=== PATIENT | male | born 1990 | race African-American/Black ===

== ENCOUNTER 2018-04-10 08:30 | Emergency (ER) | payer SELFPAY ==
[2018-04-10] MEDS ORDERED: NS 0.9% 1000 ML* 1,000 ML IV ONE (08:48)
[2018-04-10 09:21] LABS: ABS Basophils 0.1 10^3/ul (0-0.2); ABS Eosinophils 0.1 10^3/ul (0-0.6); ABS Lymphocytes 0.6 10^3/ul (1.0-4.8); ABS Monocytes 0.4 10^3/ul (0-0.8); ABS Neutrophils 2.5 10^3/ul (1.5-7.7); ABS Nucleated RBC 0 10^3/ul; Eosinophil % 3.3 % (0-6); Hematocrit 42 % (42-52); Hemoglobin 14.1 g/dl (14.0-18.0); Lymphocyte % 17.7 % (25-47); Mean Corpuscular HGB Conc 34 g/dl (31-36); Mean Corpuscular Hemoglobin 29 pg (27-31); Mean Corpuscular Volume 87 fL (80-94); Mean Platelet Volume 7.3 um3 (7.4-10.4); Nucleated Red Blood Cells % 0.1; Platelet Count 232 10^3/ul (150-450); Red Cell Distribution Width 13 % (10.5-15); White Blood Count 3.7 10^3/ul (3.5-10.8)
[2018-04-10 09:29] LABS: INR 0.86 (0.77-1.02)
--- NOTE | 2018-04-10 09:38 | RAD ---
INDICATION: Seizure, fall. COMPARISON: There are no prior studies available for comparison. TECHNIQUE: Contiguous axial sections of the brain were obtained from the skull base to the vertex without contrast. FINDINGS: The ventricles, cisterns and sulci are within normal limits. No significant focal abnormality or mass effect is seen. There is no evidence for hemorrhage. There is mild mucosal thickening in the visualized portion of the right maxillary sinus. The paranasal sinuses and mastoid air cells otherwise appear clear. No fracture is seen. IMPRESSION: NO EVIDENCE FOR ACUTE INTRACRANIAL ABNORMALITY.
--- NOTE | 2018-04-10 09:49 | RAD ---
INDICATION: Facial trauma. COMPARISON: There are no prior studies available for comparison. TECHNIQUE: Contiguous axial sections of the axial images of the facial bones were obtained and reconstructed in the coronal and sagittal planes. FINDINGS: Soft tissue swelling is noted anterior to the mandible and swelling of around both the upper and lower lips. There is air in the soft tissues deep to the upper lip. The anterior nasal spine of the maxilla appears intact. The rader of the orbits and maxillary sinuses appear intact. The zygomatic arches appear intact. There is no evidence for a fracture of the mandible. The nasal bones appear intact. There is mild deviation of the nasal septum toward the right side. The pterygoid plates appear intact. There appears to be a chip in the inferior aspect of the left central incisor tooth. There is also slight displacement of the left central and lateral incisor teeth anterior relative to the adjacent bony alveolar ridge. There is mild mucosal thickening along the medial and superior rader of both maxillary sinuses. There is also mild mucosal thickening within the ethmoid air cells. The sphenoid and frontal sinuses appear clear. IMPRESSION: 1. SOFT TISSUE SWELLING AND AIR WITHIN THE SOFT TISSUES ADJACENT TO THE UPPER LIP. 2. CHIP OF THE LEFT CENTRAL INCISOR TOOTH AND SLIGHT ANTERIOR DISPLACEMENT OF BOTH THE LEFT CENTRAL AND LATERAL INCISOR TEETH.
[2018-04-10 11:11] LABS: Urine Appearance Clear; Urine Blood Negative (Negative); Urine Color Yellow; Urine Ketones Negative (Negative); Urine Protein 1+(30 mg/dL) (Negative); Urine Specific Gravity 1.021 (1.010-1.030); Urine Urobilinogen Negative (Negative)
[2018-04-10] MEDS ORDERED: Ibuprofen TAB* 600 MG PO ONE (12:22)
[2018-04-10 12:34] VITALS: BP 111/60
--- NOTE | 2018-04-10 12:40 | ED ---
Lorraine Salcedo Rebecca, scribed for Carroll Altman MD on 04/10/18 at 0849 . Neurological HPI - HPI Summary HPI Summary: Pt is a 27 y/o M BIBA with a PMHx of epilepsy who presents to ED s/p seizure. Pt reports that he had a seizure this morning during which he was "out pretty long." States that he bit his tongue, presents with left-sided lip swelling. Also notes chipped teeth, which may have been broken for a while. On triage, associated pain is ranked 7/10. Pt was previously on Dilantin which was not improving his sx. Has not had a seizure in about 2 years, though had one 1-2 weeks ago, in addition to the episode today. Suspects that he is having episodes more often now secondary to decreased sleep. Doesn't have a neurologist and last had a CT in [id number]. - History of Current Complaint Chief Complaint: EDSeizure Stated Complaint: POSS SEIZURE,FACIAL INJURY Time Seen by Provider: 04/10/18 08:39 Hx Obtained From: Patient Onset/Duration: Resolved Timing: Intermittent Episodes Lasting: - "pretty long" Current Severity: Moderate - Lip pain Number of Seizures: 1 Pain Intensity: 7 Pain Scale Used: 0-10 Numeric Aggravating: Sleep Deprivation Alleviating: Spontanious Resolution Related Hx: Seizure - Allergy/Home Medications Allergies/Adverse Reactions: Allergies Allergy/AdvReac Type Severity Reaction Status Date / Time No Known Allergies Allergy Verified 04/10/18 08:38 PMH/Surg Hx/FS Hx/Imm Hx Endocrine/Hematology History: Denies: Hx Diabetes Cardiovascular History: Denies: Hx Coronary Artery Disease, Hx Hypertension Neurological History: Reports: Hx Seizures Infectious Disease History: No Infectious Disease History: Denies: Traveled Outside the [place] in Last 30 Days - Family History Known Family History: Positive: Hypertension - Social History Alcohol Use: Occasionally Substance Use Type: Reports: None Smoking Status (MU): Never Smoked Tobacco Review of Systems Negative: Fever Positive: Other - Bit tongue, chipped teeth, swollen lip Neurological: Other - S/p seizure All Other Systems Reviewed And Are Negative: Yes Physical Exam - Summary Physical Exam Summary: General: well-appearing, no pain distress Skin: warm, color reflects adequate perfusion, dry Head: The left upper and lower lips are swollen Eyes: EOMI, ALO ENT: Has a tongue laceration that is not actively bleeding, has a laceration on the inside of his mouth that is not actively bleeding, broken teeth Neck: supple, nontender Respiratory: CTA, breath sounds present Cardiovascular: RRR Abdomen: soft, nontender Bowel: present Musculoskeletal: normal, strength/ROM intact Neurological: sensory/motor intact, A&O x3 Psychological: affect/mood appropriate Triage Information Reviewed: Yes Vital Signs On Initial Exam: Initial Vitals Temp Pulse Resp BP Pulse Ox 98.7 F 87 22 148/87 97 04/10/18 08:33 04/10/18 08:33 04/10/18 08:33 04/10/18 08:33 04/10/18 08:33 Vital Signs Reviewed: Yes - Kayla Coma Scale Best Eye Response: 4 - Spontaneous Best Motor Response: 6 - Obeys Commands Best Verbal Response: 5 - Oriented Coma Scale Total: 15 Diagnostics - Vital Signs Vital Signs Temp Pulse Resp BP Pulse Ox 04/10/18 08:36 85 14 98 04/10/18 08:33 98.7 F 87 22 148/87 97 - Laboratory Lab Results: Lab Results 04/10/18 04/10/18 04/10/18 Range/Units 09:03 09:03 09:03 WBC 3.7 (3.5-10.8) 10^3/ul RBC 4.80 (4.00-5.40) 10^6/ul Hgb 14.1 (14.0-18.0) g/dl Hct 42 (42-52) % MCV 87 (80-94) fL MCH 29 (27-31) pg MCHC 34 (31-36) g/dl RDW 13 (10.5-15) % Plt Count 232 (150-450) 10^3/ul MPV 7.3 L (7.4-10.4) um3 Neut % (Auto) 67.1 (38-83) % Lymph % (Auto) 17.7 L (25-47) % [place] % (Auto) 10.4 H (0-7) % Eos % (Auto) 3.3 (0-6) % Baso % (Auto) 1.5 (0-2) % Absolute Neuts (auto) 2.5 (1.5-7.7) 10^3/ul Absolute Lymphs (auto) 0.6 L (1.0-4.8) 10^3/ul Absolute Monos (auto) 0.4 (0-0.8) 10^3/ul Absolute Eos (auto) 0.1 (0-0.6) 10^3/ul Absolute Basos (auto) 0.1 (0-0.2) 10^3/ul Absolute Nucleated RBC 0 10^3/ul Nucleated RBC % 0.1 INR (Anticoag Therapy) 0.86 (0.77-1.02) APTT 28.0 (26.0-36.3) seconds Sodium 137 (135-145) mmol/L Potassium 4.1 (3.5-5.0) mmol/L Chloride 107 (101-111) mmol/L Carbon Dioxide 24 (22-32) mmol/L Anion Gap 6 (2-11) mmol/L BUN 16 (6-24) mg/dL Creatinine 0.80 (0.67-1.17) mg/dL Est GFR ( Amer) 140.3 (>60) Est GFR (Non-Af Amer) 116.0 (>60) BUN/Creatinine Ratio 20.0 (8-20) Glucose 90 (70-100) mg/dL Lactic Acid (0.5-2.0) mmol/L Calcium 8.8 (8.6-10.3) mg/dL Total Bilirubin 0.70 (0.2-1.0) mg/dL AST 30 (13-39) U/L ALT 22 (7-52) U/L Alkaline Phosphatase 49 (34-104) U/L Total Creatine Kinase 529 H (10-223) U/L CK-MB (CK-2) 7.2 H (0.6-6.3) ng/mL C-Reactive Protein < 1.00 (<8.01) mg/L Total Protein 6.7 (6.4-8.9) g/dL Albumin 3.8 (3.2-5.2) g/dL Globulin 2.9 (2-4) g/dL Albumin/Globulin Ratio 1.3 (1-3) Lipase 39 (11.0-82.0) U/L TSH 1.10 (0.34-5.60) mcIU/mL Urine Color Urine Appearance Urine pH (5-9) Ur Specific [place] (1.010-1.030) Urine Protein (Negative) Urine Ketones (Negative) Urine Blood (Negative) Urine Nitrate (Negative) Urine Bilirubin (Negative) Urine Urobilinogen (Negative) Ur Leukocyte Esterase (Negative) Urine WBC (Auto) (Absent) Urine RBC (Auto) (Absent) Urine Bacteria (Absent) Urine Glucose (Negative) Salicylates < 2.50 (<30) mg/dL Urine Opiates Screen (None Detect) Acetaminophen < 15 mcg/mL Ur Barbiturates Screen (None Detect) Ur Phencyclidine Scrn (None Detect) Ur Amphetamines Screen (None Detect) U Benzodiazepines Scrn (None Detect) Urine Cocaine Screen (None Detect) U Cannabinoids Screen (None Detect) Serum Alcohol < 10 (<10) mg/dL 04/10/18 04/10/18 04/10/18 Range/Units 09:03 10:42 10:42 WBC (3.5-10.8) 10^3/ul RBC (4.00-5.40) 10^6/ul Hgb (14.0-18.0) g/dl Hct (42-52) % MCV (80-94) fL MCH (27-31) pg MCHC (31-36) g/dl RDW (10.5-15) % Plt Count (150-450) 10^3/ul MPV (7.4-10.4) um3 Neut % (Auto) (38-83) % Lymph % (Auto) (25-47) % [place] % (Auto) (0-7) % Eos % (Auto) (0-6) % Baso % (Auto) (0-2) % Absolute Neuts (auto) (1.5-7.7) 10^3/ul Absolute Lymphs (auto) (1.0-4.8) 10^3/ul Absolute Monos (auto) (0-0.8) 10^3/ul Absolute Eos (auto) (0-0.6) 10^3/ul Absolute Basos (auto) (0-0.2) 10^3/ul Absolute Nucleated RBC 10^3/ul Nucleated RBC % INR (Anticoag Therapy) (0.77-1.02) APTT (26.0-36.3) seconds Sodium (135-145) mmol/L Potassium (3.5-5.0) mmol/L Chloride (101-111) mmol/L Carbon Dioxide (22-32) mmol/L Anion Gap (2-11) mmol/L BUN (6-24) mg/dL Creatinine (0.67-1.17) mg/dL Est GFR ( Amer) (>60) Est GFR (Non-Af Amer) (>60) BUN/Creatinine Ratio (8-20) Glucose (70-100) mg/dL Lactic Acid 1.3 (0.5-2.0) mmol/L Calcium (8.6-10.3) mg/dL Total Bilirubin (0.2-1.0) mg/dL AST (13-39) U/L ALT (7-52) U/L Alkaline Phosphatase (34-104) U/L Total Creatine Kinase (10-223) U/L CK-MB (CK-2) (0.6-6.3) ng/mL C-Reactive Protein (<8.01) mg/L Total Protein (6.4-8.9) g/dL Albumin (3.2-5.2) g/dL Globulin (2-4) g/dL Albumin/Globulin Ratio (1-3) Lipase (11.0-82.0) U/L TSH (0.34-5.60) mcIU/mL Urine Color Yellow Urine Appearance Clear Urine pH 5.0 (5-9) Ur Specific [place] 1.021 (1.010-1.030) Urine Protein 1+(30 mg/dl) A (Negative) Urine Ketones Negative (Negative) Urine Blood Negative (Negative) Urine Nitrate Negative (Negative) Urine Bilirubin Negative (Negative) Urine Urobilinogen Negative (Negative) Ur Leukocyte Esterase Negative (Negative) Urine WBC (Auto) Absent (Absent) Urine RBC (Auto) Absent (Absent) Urine Bacteria Absent (Absent) Urine Glucose Negative (Negative) Salicylates (<30) mg/dL Urine Opiates Screen None detected (None Detect) Acetaminophen mcg/mL Ur Barbiturates Screen None detected (None Detect) Ur Phencyclidine Scrn None detected (None Detect) Ur Amphetamines Screen None detected (None Detect) U Benzodiazepines Scrn None detected (None Detect) Urine Cocaine Screen None detected (None Detect) U Cannabinoids Screen Presumptive positive A (None Detect) Serum Alcohol (<10) mg/dL Result Diagrams: 04/10/18 09:03 04/10/18 09:03 Lab Statement: Any lab studies that have been ordered have been reviewed, and results considered in the medical decision making process. - CT Brain CT CT Interpretation: No Acute Changes - IMPRESSION: NO EVIDENCE FOR ACUTE INTRACRANIAL ABNORMALITY. Provider has reviewed report. CT Interpretation Completed By: Radiologist Maxillofacial CT Interpretation: Positive (See Comments) - IMPRESSION: SOFT TISSUE SWELLING AND AIR WITHIN THE SOFT TISSUES ADJACENT TO THE UPPER LIP. CHIP OF THE LEFT CENTRAL INCISOR TOOTH AND SLIGHT ANTERIOR DISPLACEMENT OF BOTH THE LEFT CENTRAL AND LATERAL INCISOR TEETH. Provider has reviewed report. CT Interpretation Completed By: Radiologist - EKG 0849 Cardiac Rate: NL - 80 bpm Ectopy: None EKG Interpretation: Minimal ST elevations in V1-V5 and lead II, RSR' in V1 or V2 Course/Dx - Course Course Of Treatment: DISCUSSED WITH NEUROLOGY, DR CUEVAS, WHO RECOMMENDED KEPPRA 750MG PO BID. THE PATIENT HAS NO HEALTH INSURANCE. I HAVE REQUESTED A SOCIAL WORK CONSULT TO ASSSIST IN OBTAINING HEALTH INSURANCE. RX KEPPRA 750MG PO BID. WHEN FILLED AT [facility], THEY ARE ABLE TO REDUCE THE COST DUE TO THIS PATIENT'S NEED. F/U NEUROLOGY, DENTIST AND PMD; RETURN TO ED IF WORSE. - Diagnoses Provider Diagnoses: Epilepsy, Facial contusion, Tooth fractures - Physician Notifications Discussed Care Of Patient With: Sancho Cuevas Time Discussed With Above Provider: 11:14 Instructed by Provider To: Other - Discussed antiseizure medications and the rodas. Adivsed valproic acid as the least expensive, 500 mg PO BID, but would need to make sure his liver function is alright. Discussed Keppra which may be more expensive, but if it's not much more and he can afford it, would do 750 mg BID. Advised neurology and PCP followup. Discharge - Sign-Out/Discharge Documenting (check all that apply): Discharge/Admit/Transfer - Discharge - Discharge Plan Condition: Stable Disposition: HOME Prescriptions: Amoxicillin PO (*) [Amoxicillin 500 MG CAP*] 500 mg PO TID #30 cap levETIRAcetam TAB* [Keppra TAB*] 750 mg PO BID #90 tab Patient Education Materials: Laceration (ED), Epilepsy (ED), Acute Dental Trauma (ED), Facial Contusion (ED) Referrals: [facility] [Provider Group] [facility] [[facility]] Yesika Hadley MD [Medical Doctor] - Additional Instructions: FOLLOW UP WITH YOUR PRIMARY CARE DOCTOR AND NEUROLOGY. RETURN TO THE EMERGENCY DEPARTMENT FOR ANY WORSENING OF YOUR CONDITION OR QUESTIONS OR CONCERNS. - Billing Disposition and Condition Condition: STABLE Disposition: Home The documentation as recorded by the Lorraine ch Rebecca accurately reflects the service I personally performed and the decisions made by me, Carroll Altman MD.
== END 2018-04-10 12:33 | disposition home or self-care (01) ==
LOC: ED 08:30
DX: G40.909 Epilepsy, unspecified, not intractable, without status epilepticus (principal); S00.531A Contusion of lip, initial encounter; S02.5XXA Fracture of tooth (traumatic), initial encounter for closed fracture; W50.3XXA Accidental bite by another person, initial encounter; Y92.9 Unspecified place or not applicable; Z86.69 Personal history of other diseases of the nervous system and sense organs
CPT/HCPCS: 36415; 70450; 70486; 80053; 80307; 80320; 80329; 81003; 81015; 82550; 82553; 83605; 83690; 84443; 85025; 85610; 85730; 86140; 93005; 96360; 99283; A9270-GY; G0480